=== PATIENT | male | born 1990 | race African-American/Black ===

== ENCOUNTER 2024-05-07 14:48 | Emergency (ER) | payer SELFPAY ==
[2024-05-07] VITALS (7 sets, daily range): BP systolic 114–128; BP diastolic 75–85
[~2024-05-07] VITALS: Ht 180.3 cm; Wt 81.6 kg
[~2024-05-07 14:48] MED LIST: CEPHALEXIN500 M1 PO; NAPROXEN500 MG PO; TRAMADOL HYDROC50 M1 PO
[2024-05-07] MEDS ORDERED: methylPREDNISolone SODIUM SUCC 125 MG/2 ML SDV IV ONE (15:10)
[2024-05-07] MEDS ORDERED: IPRATROPIUM-Albuterol 0.5MG-2.5MG/3 ML NEB ONE (15:10)
[2024-05-07 15:26] LABS: BASO% 0.5 % (0-3); EOS% 0.9 % (0-8); HEMATOCRIT 42.5 % (39.0-50.0); IMMATURE GRANULOCYTES 0.5 % (0.0-5.0); MEAN CELL VOLUME 89.9 fL CALC (80.0-100.0); MEAN CORPUSCULAR HGB 29.6 pG CALC (26.0-32.0); MEAN CORPUSCULAR HGB CONC 32.9 g/dL CAL (32.0-36.0); MONO% 8.6 % (2-13); NEUT# 7.28 thou/uL (1.82-7.42); NEUT% 73.5 % (42-76); RED BLOOD COUNT 4.73 mill/uL (4.70-6.10); RED CELL DISTRI WIDTH 13.1 % (11.5-15.5)
[2024-05-07 15:43] LABS: ALBUMIN 3.9 g/dL (3.2-5.0); BILIRUBIN, TOTAL 0.6 mg/dL (0.2-1.3); CREATININE 1.1 mg/dL (0.7-1.3); POTASSIUM 4.3 mmol/l (3.5-5.1)
[2024-05-07] MEDS ORDERED: ZPAK PO (16:53)
[2024-05-07] MEDS ORDERED: LEVOCETIRIZINE D5 MG PO (16:53)
[2024-05-07] MEDS ORDERED: PROAIR RES108 MCG/AC IN (16:53)
[2024-05-07] MEDS ORDERED: PREDNISONE20 MG PO (16:53)
[2024-05-07] MEDS ORDERED: ALBUTEROL SUL1.25 MG IN (17:22)
[2024-05-07] MEDS ORDERED: NEBULIZER KIT/TUBING IN (17:22)
== END 2024-05-07 17:31 | disposition home or self-care (01) | DRG 153 ==
LOC: ED 14:48
PROVIDERS: Nurse Practitioner
DX: J06.9 Acute upper respiratory infection, unspecified (principal); J45.909 Unspecified asthma, uncomplicated; Z72.0 Tobacco use; Z20.822 Contact with and (suspected) exposure to COVID-19

== ENCOUNTER 2024-06-03 18:04 | Emergency (ER) | payer SELFPAY ==
[~2024-06-03] VITALS: Ht 180.3 cm; Wt 75.0 kg
[~2024-06-03 18:04] MED LIST changes: +ALBUTEROL SUL1.25 MG IN; +LEVOCETIRIZINE D5 MG PO; +NEBULIZER KIT/TUBING IN; +PREDNISONE20 MG PO; +PROAIR RES108 MCG/AC IN; +ZPAK PO
[2024-06-03] MEDS ORDERED: ONDANSETRON HCl 4 MG/2 ML SDV IV ONE (19:10)
[2024-06-03] MEDS ORDERED: MEPERIDINE HCL 50 MG/ML IV ONE (19:10)
[2024-06-03] MEDS ORDERED: SODIUM CHLORIDE 0.9% 1,000 ML IV ONE (19:10)
[2024-06-03 19:28] LABS: BASO% 0.3 % (0-3); EOS% 0.7 % (0-8); HEMATOCRIT 38.8 % (39.0-50.0); HEMOGLOBIN 12.4 g/dl (14.0-18.0); IMMATURE GRANULOCYTES 0.4 % (0.0-5.0); LYMPH% 12.2 % (15-41); MEAN CELL VOLUME 90.4 fL CALC (80.0-100.0); MEAN CORPUSCULAR HGB 28.9 pG CALC (26.0-32.0); NEUT# 9.99 thou/uL (1.82-7.42); NEUT% 79.4 % (42-76); RED BLOOD COUNT 4.29 mill/uL (4.70-6.10); RED CELL DISTRI WIDTH 12.9 % (11.5-15.5)
[2024-06-03 19:47] LABS: ALBUMIN 3.7 g/dL (3.2-5.0); BILIRUBIN, TOTAL 0.7 mg/dL (0.2-1.3)
[2024-06-03] MEDS ORDERED: ONDANSETRON4 MG PO (20:57)
[2024-06-03] MEDS ORDERED: OMEPRAZOLE DR40 MG PO (20:57)
[2024-06-03] MEDS ORDERED: FAMOTIDINE 20 MG/TAB PO ONE (21:00)
[2024-06-03 21:26] VITALS: BP 117/78
== END 2024-06-03 21:27 | disposition home or self-care (01) | DRG 392 ==
LOC: ED 18:04
PROVIDERS: Family Medicine
DX: K29.00 Acute gastritis without bleeding (principal); J45.909 Unspecified asthma, uncomplicated; F17.210 Nicotine dependence, cigarettes, uncomplicated
CPT/HCPCS: Q9967

== ENCOUNTER 2024-09-30 23:30 | Observation (INO) | payer OTHER ==
[~2024-09-30] VITALS: Ht 175.3 cm; Wt 77.6 kg
[~2024-09-30 23:30] MED LIST changes: +OMEPRAZOLE DR40 MG PO; +ONDANSETRON4 MG PO; +PHENAZOPYRIDIN100 M1 PO
[2024-09-30 23:32] VITALS: BP 147/94
[2024-09-30 23:37] VITALS: BP 164/104
[2024-09-30 23:45] VITALS: BP 121/74
[2024-09-30] MEDS ORDERED: ASPIRIN 81 MG/TAB PO ONE (23:45)
[2024-09-30 23:52] LABS: BASO% 0.5 % (0-3); EOS% 13.1 % (0-8); HEMATOCRIT 40.3 % (39.0-50.0); HEMOGLOBIN 13.1 g/dl (14.0-18.0); IMMATURE GRANULOCYTES 0.2 % (0.0-5.0); LYMPH% 23.5 % (15-41); MEAN CORPUSCULAR HGB 28.3 pG CALC (26.0-32.0); MEAN CORPUSCULAR HGB CONC 32.5 g/dL CAL (32.0-36.0); MONO% 7.9 % (2-13); NEUT# 5.93 thou/uL (1.82-7.42); NEUT% 54.8 % (42-76); RED BLOOD COUNT 4.63 mill/uL (4.70-6.10); RED CELL DISTRI WIDTH 14.5 % (11.5-15.5)
[2024-10-01] VITALS (15 sets, daily range): BP systolic 114–143; BP diastolic 48–84
[2024-10-01 00:06] LABS: ALBUMIN 4.2 g/dL (3.2-5.0); ALKALINE PHOSPHATASE 77 u/l (38-126); ANION GAP 11 (6-22 (CALC)); BILIRUBIN, TOTAL 0.7 mg/dL (0.2-1.3); BUN 10 mg/dL (9-20); BUN/CREATININE RATIO 10 (12-20 (CALC)); CARBON DIOXIDE 25 mmol/l (22-30); CHLORIDE 106 mmol/l (95-108); ESTIMATED GFR 102 ML/MIN (>=90 (CALC)); LIPASE 62 u/l (23-300); POTASSIUM 3.2 mmol/l (3.5-5.1); SGOT/AST 32 u/l (17-59); SODIUM 139 mmol/l (137-146); TOTAL PROTEIN 7.5 g/dL (6.3-8.2)
[2024-10-01] MEDS ORDERED: IPRATROPIUM-Albuterol 0.5MG-2.5MG/3 ML NEB ONE (00:20)
[2024-10-01] MEDS ORDERED: APIXABAN BASE 5 MG TAB PO ONE (00:20)
[2024-10-01] MEDS ORDERED: methylPREDNISolone Sod Succ 40 MG/ML SDV IV ONE (00:20)
[2024-10-01] MEDS ORDERED: METOPROLOL TARTRATE 5 MG/5 ML VIAL IV ONE (00:20)
[2024-10-01 00:25] LABS: ACT PARTIAL THROMBO TIME 32.9 SECONDS (20.0-32.5); PROTHROMBIN TIME 10.6 SECONDS (9.0-12.5)
[2024-10-01 00:44] LABS: D-DIMER 6.6 mg/L (0.19-0.60)
[2024-10-01 03:20] LABS: URINE BLOOD DIPSTICK Negative (NEGATIVE); URINE COLOR Yellow; URINE GLUCOSE - DIPSTICK Negative (NEGATIVE); URINE KETONE Trace mg/dL (NEGATIVE); URINE LEUK ESTERASE Negative (NEGATIVE); URINE NITRITE - DIPSTICK Negative (Negative); URINE PROTEIN - DIPSTICK 30 mg/dL (NEG-TRACE); URINE SPECIFIC GRAVITY 1.025
[2024-10-01 03:26] LABS: URINE MUCUS MODERATE hpf (NONE-FEW); URINE SQUAMOUS EPITHELIAL CELL FEW EPI/hpf (0-FEW); URINE TRANSITIONAL EPI. CELLS RARE hpf; URINE WBC 0-2 WBC/hpf (0-5)
[2024-10-01] MEDS ORDERED: MAGNESIUM HYDROXIDE 30 ML UDC PO PRN (03:55)
[2024-10-01] MEDS ORDERED: ACETAMINOPHEN 325 MG/TAB PO PRN (03:55)
[2024-10-01] MEDS ORDERED: SODIUM CHLORIDE 0.9% 1,000 ML IV PRN (03:55)
[2024-10-01] MEDS ORDERED: IPRATROPIUM-Albuterol 0.5MG-2.5MG/3 ML IN PRN (05:30)
[2024-10-01] MEDS ORDERED: TOPROL XL25 MG PO (09:07)
[2024-10-01] MEDS ORDERED: ELIQUIS5 MG PO (09:07)
[2024-10-01] MEDS ORDERED: AMPICILLIN500 MG PO (09:07)
[2024-10-01] MEDS ORDERED: METOPROLOL SUCCINATE 25 MG/TAB-TOPROL XL PO SCH (10:00)
[2024-10-01] MEDS ORDERED: AMOXICILLIN TRIHYDRATE 500 MG/CAP PO SCH (10:00)
[2024-10-01] MEDS ORDERED: ASPIRIN EC 81 MG/TAB PO SCH (10:00)
[2024-10-01] MEDS ORDERED: APIXABAN BASE 5 MG TAB PO SCH (10:00)
[2024-10-01] MEDS ORDERED: ENOXAPARIN SODIUM 40 MG/0.4 ML SYR SC SCH (21:00)
[2024-10-02] VITALS (11 sets, daily range): BP systolic 115–131; BP diastolic 62–81
[2024-10-02 05:38] LABS: BASO% 0.5 % (0-3); EOS% 9.3 % (0-8); HEMATOCRIT 37.9 % (39.0-50.0); HEMOGLOBIN 12.1 g/dl (14.0-18.0); IMMATURE GRANULOCYTES 0.2 % (0.0-5.0); LYMPH% 24.5 % (15-41); MEAN CELL VOLUME 89.2 fL CALC (80.0-100.0); MEAN CORPUSCULAR HGB 28.5 pG CALC (26.0-32.0); MEAN CORPUSCULAR HGB CONC 31.9 g/dL CAL (32.0-36.0); MONO% 8.2 % (2-13); NEUT# 6.95 thou/uL (1.82-7.42); NEUT% 57.3 % (42-76); RED BLOOD COUNT 4.25 mill/uL (4.70-6.10); RED CELL DISTRI WIDTH 14.4 % (11.5-15.5)
[2024-10-02 05:53] LABS: CREATININE 0.8 mg/dL (0.7-1.3); MAGNESIUM 1.9 mg/dL (1.6-2.3); TOTAL PROTEIN 6.2 g/dL (6.3-8.2)
[2024-10-02 05:55] LABS: ALBUMIN 3.3 g/dL (3.2-5.0); BILIRUBIN, TOTAL 0.3 mg/dL (0.2-1.3); POTASSIUM 3.9 mmol/l (3.5-5.1)
[2024-10-03 04:24] VITALS: BP 124/80
[2024-10-03 05:15] LABS: EOS% 14.4 % (0-8); HEMATOCRIT 38.9 % (39.0-50.0); HEMOGLOBIN 12.3 g/dl (14.0-18.0); IMMATURE GRANULOCYTES 0.1 % (0.0-5.0); LYMPH% 43.1 % (15-41); MEAN CELL VOLUME 88.4 fL CALC (80.0-100.0); MEAN CORPUSCULAR HGB CONC 31.6 g/dL CAL (32.0-36.0); MONO% 6.8 % (2-13); NEUT# 2.55 thou/uL (1.82-7.42); NEUT% 34.6 % (42-76); RED BLOOD COUNT 4.4 mill/uL (4.70-6.10); RED CELL DISTRI WIDTH 14.3 % (11.5-15.5)
[2024-10-03 05:40] LABS: ALBUMIN 3.3 g/dL (3.2-5.0); BILIRUBIN, TOTAL 0.3 mg/dL (0.2-1.3); CREATININE 0.8 mg/dL (0.7-1.3); MAGNESIUM 1.9 mg/dL (1.6-2.3); POTASSIUM 4.5 mmol/l (3.5-5.1)
[2024-10-03 05:58] VITALS: BP 124/80
[2024-10-03 07:03] VITALS: BP 119/55
[2024-10-03] MEDS ORDERED: MAGNESIUM SULFATE HEPTAHYDRATE 50 ML IV SCH (08:00)
[2024-10-03] MEDS ORDERED: INFLUENZA VIRUS VACCINE (FLUARIX) 2024/25 0.5 ML INJ IM SCH (09:00)
[2024-10-03 10:44] VITALS: BP 118/62
[2024-10-03] MEDS ORDERED: ELIQUIS5 MG PO (14:32)
[2024-10-03] MEDS ORDERED: TOPROL XL25 MG PO (14:32)
[2024-10-03 14:34] VITALS: BP 105/53
== END 2024-10-03 15:59 | disposition home or self-care (01) | DRG 313 ==
LOC: ED 23:30 → ED-I 10-01 03:40 → ED 10-01 03:54 → MS2 10-01 03:55
PROVIDERS: Emergency Medicine; Nurse Practitioner Family; ADMIT Internal Medicine; ATTEND Internal Medicine
DX: R07.9 Chest pain, unspecified (principal); J45.901 Unspecified asthma with (acute) exacerbation; I47.20 Ventricular tachycardia, unspecified; F14.10 Cocaine abuse, uncomplicated; T45.516A Underdosing of anticoagulants, initial encounter; T44.7X6A Underdosing of beta-adrenoreceptor antagonists, initial encounter; Z91.128 Patient's intentional underdosing of medication regimen for other reason; Z79.01 Long term (current) use of anticoagulants; Z95.2 Presence of prosthetic heart valve; Z95.0 Presence of cardiac pacemaker; Z86.79 Personal history of other diseases of the circulatory system; Z79.2 Long term (current) use of antibiotics
CPT/HCPCS: 90656; G0378; J3475; Q9967

== ENCOUNTER 2024-11-14 14:51 | Emergency (ER) | payer OTHER ==
[~2024-11-14] VITALS: Ht 175.3 cm; Wt 75.0 kg
[~2024-11-14 14:51] MED LIST changes: +AMPICILLIN500 MG PO; +ELIQUIS5 MG PO; +TOPROL XL25 MG PO
[2024-11-14] MEDS ORDERED: KETOROLAC TROMETHAMINE 30 MG/ML SDV IV ONE (16:00)
[2024-11-14] MEDS ORDERED: SODIUM CHLORIDE 0.9% 1,000 ML IV ONE (16:00)
[2024-11-14 16:11] LABS: BASO% 0.3 % (0-3); EOS% 0.3 % (0-8); IMMATURE GRANULOCYTES 0.5 % (0.0-5.0); LYMPH% 11.9 % (15-41); MEAN CELL VOLUME 87.3 fL CALC (80.0-100.0); MONO% 11.2 % (2-13); NEUT# 11.76 thou/uL (1.82-7.42); NEUT% 75.8 % (42-76); RED BLOOD COUNT 5.29 mill/uL (4.70-6.10); RED CELL DISTRI WIDTH 17.9 % (11.5-15.5)
[2024-11-14 16:12] LABS: HEMATOCRIT 46.2 % (39.0-50.0); HEMOGLOBIN 14.8 g/dl (14.0-18.0)
[2024-11-14 16:17] LABS: URINE BLOOD DIPSTICK Small (NEGATIVE); URINE GLUCOSE - DIPSTICK Negative (NEGATIVE); URINE KETONE 15 mg/dL (NEGATIVE); URINE PROTEIN - DIPSTICK 100 mg/dL (NEG-TRACE)
[2024-11-14 16:19] LABS: URINE COLOR Amber; URINE LEUK ESTERASE Small (NEGATIVE); URINE NITRITE - DIPSTICK Positive (Negative)
[2024-11-14] MEDS ORDERED: cefTRIAXone SODIUM 2 GM in SODIUM CHLORIDE 0.9% 100 ML IV ONE (16:25)
[2024-11-14 16:26] LABS: URINE BACTERIA MODERATE hpf; URINE WBC 50-100 WBC/hpf (0-5)
[2024-11-14 16:27] LABS: URINE MUCUS MODERATE hpf (NONE-FEW)
[2024-11-14 16:28] LABS: URINE SQUAMOUS EPITHELIAL CELL MODERATE EPI/hpf (0-FEW); URINE TRANSITIONAL EPI. CELLS FEW hpf
[2024-11-14 16:37] LABS: CREATININE 1.3 mg/dL (0.7-1.3); TOTAL PROTEIN 7.2 g/dL (6.3-8.2)
[2024-11-14 16:38] LABS: BILIRUBIN, TOTAL 1.3 mg/dL (0.2-1.3)
[2024-11-14] MEDS ORDERED: KEFLEX500 MG PO (18:48)
[2024-11-14 19:01] VITALS: BP 134/89
== END 2024-11-14 19:00 | disposition home or self-care (01) | DRG 690 ==
LOC: ED 14:51
PROVIDERS: Nurse Practitioner
DX: N39.0 Urinary tract infection, site not specified (principal); I38 Endocarditis, valve unspecified; J45.909 Unspecified asthma, uncomplicated; Z95.0 Presence of cardiac pacemaker; Z72.0 Tobacco use
CPT/HCPCS: J0696; Q9967